=== PATIENT | female | born 1995 | race Two or more races ===

== ENCOUNTER 2018-04-15 11:57 | Outpatient (CLI) | payer OTHER ==
[2018-04-15] MEDS ORDERED: FE C TABLET1 EACH PO (12:09)
[2018-04-15] MEDS ORDERED: PRENATAL 19 TA1 EAC1 PO (12:09)
[2018-04-15] MEDS ORDERED: VALTREX1000 MG PO (12:10)
== END 2018-04-15 22:56 | disposition still patient (30) ==
LOC: OBS/DEL 11:57
DX: O47.1 False labor at or after 37 completed weeks of gestation (principal); Z34.03 Encounter for supervision of normal first pregnancy, third trimester

== ENCOUNTER 2018-04-15 23:00 | Inpatient (IN) | payer OTHER ==
[~2018-04-15] VITALS: Ht 165.1 cm; Wt 76.2 kg
[~2018-04-15 23:00] MED LIST: FE C TABLET1 EACH PO; PRENATAL 19 TA1 EAC1 PO; VALTREX1000 MG PO
== END 2018-04-18 13:51 | disposition home or self-care (01) | DRG 807 ==
LOC: LDR 23:00 → OB/GYN 23:00
PROVIDERS: ADMIT Specialist
PROC: 4A1HXCZ Monitoring of Products of Conception, Cardiac Rate, External Approach (ICD-10-PCS; 2018-04-15)
PROC: 10E0XZZ Delivery of Products of Conception, External Approach (ICD-10-PCS; principal; 2018-04-16)
PROC: 0UQGXZZ Repair Vagina, External Approach (ICD-10-PCS; 2018-04-16)
PROC: 4A033R1 Measurement of Arterial Saturation, Peripheral, Percutaneous Approach (ICD-10-PCS; 2018-04-16)
DX: O71.4 Obstetric high vaginal laceration alone (principal); Z37.0 Single live birth; Z3A.39 39 weeks gestation of pregnancy; Z22.330 Carrier of Group B streptococcus